=== PATIENT | female | born 1955 | race Caucasian/White ===

== ENCOUNTER 2016-11-08 15:00 | Outpatient (CLI) ==
--- NOTE | 2016-11-08 15:49 | US ---
EXAM: Bilateral lower extremity venous Doppler History: Bilateral lower extremity swelling. Technique: Multiple sonographic images through the bilateral lower extremities were obtained. Cowan r duplex Doppler was used to interrogate vascular flow. Findings: The bilateral common femoral, greater saphenous, profunda, superficial femoral, popliteal , peroneal, posterior tibial and anterior tibial veins demonstrate spontaneous flow with normal comp ression and normal augmentation. Impression: No sonographic evidence for deep venous thrombosis.
== END 2016-11-08 15:01 | disposition home or self-care (01) ==
LOC: RAD 15:00
PROVIDERS: ATTEND Internal Medicine
DX: M79.89 Other specified soft tissue disorders (principal)